=== PATIENT | male | born 1935 | race Caucasian/White ===

== ENCOUNTER 2019-05-13 20:39 | Emergency (ER) | payer OTHER ==
--- NOTE | 2019-05-13 20:50 | PDOC ---
Attending Attestation - Resident Resident Name: Chris Argueta - ED Attending Attestation I have performed the following: I have examined & evaluated the patient, The case was reviewed & discussed with the resident, I agree w/resident's findings & plan - HPI HPI: 05/13/19 22:32 see resident hpi - Physicial Exam PE: 05/13/19 22:32 agree with resident exam - Critical Care Time Total Critical Care Time: 60 Critical Care Statement: The care of this patient involved high complexity decision making to prevent further life threatening deterioration of the patient 's condition and/or to evaluate & treat vital organ system(s) failure or risk of failure. - Medical Decision Making 05/13/19 22:32 84-year-old male with shortness of breath and history of COPD Patient had an episode of chest pain followed by back pain in the emergency department Initial EKG showed borderline hyperacute T waves with no ST segment elevations No old EKG available for comparison Initial troponin elevated as is patient's BUN and creatinine Blood gas suggests partially compensated metabolic acidosis According to the family and the patient there is no known history of kidney disease Patient will be admitted to medical service, Solu-Medrol 125 mg, nebulizer treatments, aspirin given in the emergency department On reevaluation patient is clinically improved and prefers to be discharged home but at this time is agreeing to stay for admission
[2019-05-13] MEDS ORDERED: ASPIRIN 81 MG CHEWABLE TABLETS PO ONE (20:56)
--- NOTE | 2019-05-13 20:58 | PDOC ---
History of Present Illness - General Chief Complaint: Shortness of Breath Stated Complaint: DIFFICULTY OF BREATHING Time Seen by Provider: 05/13/19 20:49 History Source: Patient, Family (Daughter present at bedside.) Exam Limitations: Clinical Condition - History of Present Illness Initial Comments: HPI: 84 y/o male presenting to [facility] ER complaining of shortness of breath and substernal chest pain. SOB started suddenly around 4pm. Used home albuterol and tiotropium around 7pm with minimal improvement in symptoms. [facility] EMS crew arrived on scene and found the pt in acute respiratory distress. Placed the pt on NRB and administered Albuterol without improvement. Pt unable to speak secondary to acute condition. Able to nod yes and no. History primarily obtained from pt's daughter, who was present at bedside. Social Hx: - Current smoker Medical Hx: - COPD Review of Systems: Unable to obtain secondary to pts clinical condition Physical Examination: Constitutional- Thin elderly adult male in no acute respiratory distress. Pt unable to speak secondary to SOB. Head- Normocephalic. No obvious external signs of trauma. Cardiovascular / Chest- Tachycardic rate with regular rhythm. No murmur, rubs, clicks, or gallops. Peripheral pulses- radial pulses full. No JVD. No pretibial edema. Respiratory- Breathing shallow and rapid. Diffuse rhonchi with trace wheeze in all lung agustin. Subcostal retractions. Gastrointestinal- abdomen is soft, non-tender, non-distended. Neuro- Alert. Unable to assess orientation. Moving all four extremities spontaneously. Skin- Warm, dry, and intact. MDM: *Reviewed vital signs, nursing notes, and prior visit documentation (if available). 84 y/o male presenting with acute respiratory distress. Afebrile. Vitals remarkable for tachycardia without hypotension. Normoxic on 15 LPM on NRB. Physical exam as described above. CXR revealed hyperinflation without consolidation or effusion. Initial EKG revealed sinus tachycardia with peaked T waves and <1mm ST segment elevation in V1 and V2 with <1mm depression in V5 and V6. Labs revealed partially compensated metabolic acidosis, as well as possible acute renal failure. Troponin and BNP elevated. Possibly secondary to renal failure. Ordered repeat Troponin at 1.5 hours to trend. Given ASA, Solu-medrol, and Abuterol. Placed on BiPAP with rapid improvement of respiratory symptoms. On repeat interview with daughter, she informed that the pt injects himself with testosterone (unknown frequency). Uses multiple narcotic medications - unsure if Percocet is one of them. Frequently uses Ibuprofen and Acetaminophen for chronic back pain. Possibly taking other medications because he knows how to prescribe and gets a lot of things from [facility]. Started vomiting earlier today after endorsing heartburn symptoms. Took Pepto Bismol. 13 May 2019 22:33 PM Telephone discussion with resident Dr. Daniels. Verbally appraised of the pts HPI, ED course, and current plan of management. Will admit pt to med/surg for attending Dr. Torrez. Will f/u on pending acetaminophen , salicylate, lactic acid, and repeat troponin. Repeat EKG revealed sinus tachycardia with resolution of ST elevation in V1 and V2. ST elevation in V3 with <1mm depression in V4. Infrequent PVCs noted. Chris Argueta M.D., PGY2 Emergency Medicine Resident 05/13/19 22:42 Past History - Past Medical History Allergies/Adverse Reactions: Allergies Allergy/AdvReac Type Severity Reaction Status Date / Time No Known Allergies Allergy Verified 05/13/19 20:54 - Psycho Social/Smoking Cessation Hx Smoking History: Current some day smoker Number of Cigarettes Smoked Daily: 10 Information on smoking cessation initiated: No Hx Alcohol Use: Yes Drug/Substance Use Hx: No *Physical Exam - Vital Signs Last Vital Signs Temp Pulse Resp BP Pulse Ox 98.9 F 136 H 28 H 118/72 100 05/13/19 20:39 05/13/19 20:39 05/13/19 20:39 05/13/19 20:39 05/13/19 20:49 ED Treatment Course - LABORATORY CBC & Chemistry Diagram: 05/13/19 20:53 05/13/19 20:53 - RADIOLOGY Radiology Studies Ordered: Category Date Time Status CHEST X-RAY PORTABLE* [RAD] Stat Radiology 05/13/19 20:54 Ordered Discharge - Discharge Information Problems reviewed: Yes Clinical Impression/Diagnosis: Respiratory distress, Elevated troponin, Metabolic acidosis Renal failure Qualifiers: Renal failure chronicity: acute Acute renal failure type: unspecified Qualified Code(s): N17.9 - Acute kidney failure, unspecified Condition: Fair - Admission Yes - Follow up/Referral Referrals: Chin Lacey MD [Primary Care Provider] - - Patient Discharge Instructions - Post Discharge Activity
[2019-05-13 21:05] VITALS: BP 118/72; PULSE 136; TEMP 98.9; BMI 21.6
[2019-05-13] MEDS ORDERED: methylPREDNISolone NA SUCC 125 MG/2 ML VIAL IVPUSH ONE (21:11)
[2019-05-13] MEDS ORDERED: ALBUTEROL SO4 0.042% IH SOL 1.25 MG/3 ML VIAL.NEB NEB ONE (21:11)
[2019-05-13 21:21] LABS: BASO % 0.2 % (0-2.0); EOS % 0.1 % (0-4.5); MCH 29.2 pg (25.7-33.7)
[2019-05-13 21:33] LABS: ARTERIAL BLD GAS O2 SATURATION 98.6 % (95-98); ARTERIAL BLOOD GAS BASE EXCESS -8.3 meq/l (-2-2); ARTERIAL BLOOD GAS PCO2 32.4 mmHg (35-45); ARTERIAL BLOOD GAS PO2 167 mmHg (80-100); ARTERIAL BLOOD GAS pH 7.32 (7.35-7.45); CARBOXYHEMOGLOBIN 0.8 % (0-2)
[2019-05-13 21:36] LABS: VENOUS PC02 51.6 mmHg (38-52); VENOUS PH 7.21 (7.31-7.41)
[2019-05-13] MEDS ORDERED: LIDOCAINE 5% TOPICAL PATCH TP ONE (21:36)
[2019-05-13] MEDS ORDERED: ACETAMINOPHEN 1000 MG/100 ML VIAL (NON FORMULARY) IVPB ONE (21:36)
[2019-05-13] MEDS ORDERED: methylPREDNISolone NA SUCC 125 MG/2 ML VIAL ONE (21:37)
[2019-05-13] MEDS ORDERED: ASPIRIN 81 MG CHEWABLE TABLETS ONE (21:37)
[2019-05-13] MEDS ORDERED: ACETAMINOPHEN INJECTION 100 ML IVPB ONE (21:41)
[2019-05-13] MEDS ORDERED: LIDOCAINE 5% TOPICAL PATCH ONE (21:42)
[2019-05-13 21:45] LABS: VENOUS PO2 < 49 mmHg (28-48)
[2019-05-13] MEDS ORDERED: ALBUTEROL SO4 0.083% IH SOL 2.5 MG/3 ML VIAL.NEB. NEB ONE (21:47)
[2019-05-13 21:48] LABS: HEMATOCRIT 49.8 % (35.4-49); HEMOGLOBIN 15.6 GM/dL (11.7-16.9); LYMPH % 4.6 % (8-40); MCHC 31.4 g/dl (32.0-35.9); MEAN CELL VOLUME 93.1 fl (80-96); MEAN PLT VOLUME 8.6 fl (7.5-11.1); MONO % 5.6 % (3.8-10.2); NEUT % 89.5 % (42.8-82.8); PLATELET COUNT 301 K/MM3 (134-434); RBC 5.34 M/mm3 (4.00-5.60); RDW 15.1 % (11.9-15.9); WHITE BLOOD COUNT 19.2 K/mm3 (4.0-10.0)
[2019-05-13 21:51] LABS: BILIRUBIN,TOTAL 0.7 mg/dL (0.2-1); BLOOD UREA NITROGEN 46.4 mg/dL (7-18); CALCIUM 8.7 mg/dL (8.5-10.1); CREATININE 2.8 mg/dL (0.55-1.3); N-TERMINAL BNP 1094.6 pg/ml (5-450); POTASSIUM 4.5 mmol/L (3.5-5.1); TOT PROT 7.7 g/dl (6.4-8.2)
[2019-05-13] MEDS ORDERED: LIDOCAINE PATCH REMOVAL MC SCH (22:00)
[2019-05-13 22:03] LABS: INR 1.02 (0.83-1.09)
--- NOTE | 2019-05-13 22:35 | PN ---
Teaching Attending Note Name of Resident: Chrissy Ojeda ATTENDING PHYSICIAN STATEMENT I saw and evaluated the patient. I reviewed the resident's note and discussed the case with the resident. I agree with the resident's findings and plan as documented. SUBJECTIVE: Patient is 84 year old man with PMH of COPD, Tobacco use, Testicular cancer, CHF , Afib (on flecanide but no AC), and Chronic back pain presenting to ER complaining of shortness of breath and substernal chest pain. SOB started suddenly around 4pm. Used home albuterol and tiotropium around 7pm with minimal improvement in symptoms. EMS crew arrived on scene and found the patient in acute respiratory distress. Placed the patient on NRB and administered Albuterol without improvement. On arrival in the ER patient was unable to speak secondary to the acute condition. Able to nod yes and no. History primarily obtained from pt's daughter , who was present at bedside. Initial EKG showed borderline hyperacute T waves with no ST segment elevations - no old EKG available for comparison. Initial troponin elevated as is patient's BUN and creatinine. As per family patient there is no known history of kidney disease. Patient got Solu-Medrol 125 mg, nebulizer treatments and aspirin in the ER. Placed on BiPAP with rapid improvement of respiratory symptoms. Daughter says that the patient injects himself with testosterone (unknown frequency). Uses multiple narcotics, Ibuprofen and Acetaminophen for chronic back pain. Started vomiting earlier today after endorsing heartburn symptoms. Took Pepto Bismol. Repeat EKG in the ER revealed sinus tachycardia with resolution of ST elevation in V1 and V2. ST elevation in V3 with <1mm depression in V4. Infrequent PVCs noted. OBJECTIVE: Alert on BiPAP Vital Signs Period Temp Pulse Resp BP Sys/Bishop Pulse Ox Last 24 Hr 98.9 F 136 28 118/72 100-100 HEENT: No Jaundice, eye redness or discharge, PERRLA, EOMI. Normocephalic, atraumatic. External ears are normal and hearing is grossly intact. No nasal discharge. Neck: Supple, nontender. No palpable adenopathy or thyromegaly. No JVD Chest: Good effort. Diffuse expiratory wheezing. Clear to percussion. Heart: Regular. No S3, rub or murmur Abdomen: Not distended, soft, nontender and no HSM. No rebound or guarding. Normal bowel sounds. Ext: Peripheral pulses intact. No leg edema. Skin: Warm and dry. No petechiae, rash or ecchymosis. Neuro: Alert. Oriented x3. CN 2-12 grossly intact. Sensation grossly intact in all four extremities and DTR are symmetric. Psych: Appropriate mood and affect. Good insight. Current Medications Generic Name Dose Route Start Last Admin Trade Name Freq PRN Reason Stop Dose Admin Miscellaneous 1 each 05/13/19 22:00 Lidoderm Patch Removal MC [id number] SHEMAR Abnormal Lab Results 05/13/19 05/13/19 05/13/19 20:53 20:53 20:53 WBC 19.2 H Hct 49.8 H MCHC 31.4 L Absolute Neuts (auto) 17.1 H Neutrophils % 89.5 H Lymphocytes % 4.6 L ABG pH 7.32 L ABG pCO2 at Pt Temp 32.4 L ABG pO2 at Pt Temp 167 H ABG HCO3 16.3 L ABG O2 Sat (Measured) 98.6 H ABG Base Excess -8.3 L VBG pH POC VBG pO2 VBG HCO3 VBG Base Excess Carbon Dioxide Anion Gap BUN Creatinine Random Glucose Troponin I 0.14 H B-Natriuretic Peptide 05/13/19 05/13/19 20:53 20:53 WBC Hct MCHC Absolute Neuts (auto) Neutrophils % Lymphocytes % ABG pH ABG pCO2 at Pt Temp ABG pO2 at Pt Temp ABG HCO3 ABG O2 Sat (Measured) ABG Base Excess VBG pH 7.21 L POC VBG pO2 < 49 H VBG HCO3 19.9 L VBG Base Excess -8.2 L Carbon Dioxide 20 L Anion Gap 17 H BUN 46.4 H Creatinine 2.8 H Random Glucose 238 H Troponin I B-Natriuretic Peptide 1094.6 H ASSESSMENT AND PLAN: 1. COPD exacerbation - Continued smoking is likely partly a precipitating factor. Has leuocytosis and lactic acidosis, but afebrile and no obvious source of infection. CXR shows hyperinflation with no infiltrates, pneumothorax or effusion. Pending UA and Chest CT (pneumonia?) will treat with solumedrol, xopenex, azihromycin and rocephin, and symbicort. Hydrate with IV NS, get urine toxicology and trend lactic acid. Patient has Afib and is not on anticoagulant. EKG shows sinus tachycardia, DARWIN and nonspecific ST-T wave changes. Elevated troponin may signal demand ischemia - will treadn trponin and repeat EKG to rule out ACS. Get ECHO and consult cardiology. Can't get a chest CTA to rule out PE because of azotemia. Will get d -dimer, leg doppler, V/Q scan and consult Pulmonary. Will decide on anticoagulation after d-dimer and leg doppler. Will continue comprehensive care for all of patients comorbid conditions. 2. VIKI - Likely partly due to NSAIDS. Will get stat UA, kidney sonogram, hydrate and monitor urine output. consult nephrology and avoid nephrotoxic agents such as NSAIDS, aminoglycosides, contrast dyes and certain Alternative medicine products. 3. DM? Patient denies having DM. Hyperglycemia may be contributing to metabolic acidosis. Will treat SQ insulin if repeat glucose do sliding scale insulin regimen. Provide comprehensive diabetes care with patient teaching and counseling about the importance of adherence to prescribed diabetes regimen, euglycemia, eye care and foot care. 4. Tobacco Use Counseled on risks associated with tobacco use. We will provide patient all the necessary assistance to facilitate smoking cessation and prescribe Nicotine patch. 5. DVT prophylaxis - Heparin 5000u sq tid. 6. Advance directives - Full code
[2019-05-13] MEDS ORDERED: LACTATED RINGERS SOLUTION 1000 ML INFUS.BAG IV ONE (23:02)
[2019-05-13] MEDS ORDERED: ALBUTEROL SO4 2.5/IPRATROPIUM 0.5 INH SOL 3 ML VIAL.NEB. NEB ONE (23:49)
[2019-05-13] MEDS ORDERED: NITROGLYCERIN 2% OINTMENT - 1GM PACKET TD ONE (23:59)
[2019-05-14] MEDS ORDERED: NITROGLYCERIN 2% OINTMENT - 1GM PACKET TD ONE (00:03)
[2019-05-14] MEDS ORDERED: KETAMINE HCL 200 MG/20 ML VIAL IVPUSH ONE (00:06)
[2019-05-14] MEDS ORDERED: ROCURONIUM BROMIDE 50 MG/5 ML VIAL IVPUSH ONE (00:06)
[2019-05-14] MEDS ORDERED: RAPID SEQUENCE INTUBATION KIT NR ONE ×2 (00:10→00:17)
[2019-05-14] MEDS ORDERED: KETAMINE HCL 200 MG/20 ML VIAL ONE (00:13)
[2019-05-14] MEDS ORDERED: SODIUM CHLORIDE 1,000 ML IV SCH (00:15)
[2019-05-14] MEDS ORDERED: AZITHROMYCIN IVPB 500 MG in DEXTROSE 5%-WATER - 250 ML IVPB ONE (00:23)
[2019-05-14] MEDS ORDERED: LEVALBUTEROL HCL 0.63 MG/3 ML VIAL.NEB. IH PRN (00:30)
[2019-05-14] MEDS ORDERED: EPINEPHrine 1:10,000 (P-F SYR) 1 MG/10 ML DISP.SYRIN ONE (01:18)
--- NOTE | 2019-05-14 01:29 | HP ---
CHIEF COMPLAINT: Shortness of breath PCP: Dr. Lacey Baker Apprentice: Dr. Mateo Alicea, last seen in 2017 HISTORY OF PRESENT ILLNESS: Patient is 84 year old man with PMH of COPD, Tobacco use, testicular cancer, afib (on flecainide but no AC), chronic back pain, and questionable history of CHF presenting to ED complaining of shortness of breath. Per the patient's daughter, the patient appeared to be in his usual state of health until around 4pm. She was making tea and her dad was in the other room and when she came back to check on him she noted he was making "noises" and appeared to be struggling to breath. He tried to use his home albuterol and tiotropium around 7pm with minimal improvement in symptoms. S EMS crew arrived on scene and found the pt in acute respiratory distress. Placed the pt on NRB and administered Albuterol without improvement. Additionally patient reports 6 episodes of vomiting earlier today after endorsing heartburn symptoms. Took Pepto Bismol without improvement in symptoms. Initial EKG showed borderline hyperacute T waves with no ST segment elevations - no old EKG available for comparison. Initial troponin elevated (0.14) as is patient's BUN and creatinine (46.4/ 2.8). As per family patient there is no known history of kidney disease. Patient got Solu-Medrol 125 mg, nebulizer treatments and aspirin in the ER. Placed on BiPAP. Per the ED note the patient was unable to give much history due to respiratory distress. On my arrival the patient appeared somewhat improved in that now he was speaking in sentences and answering some questions however he was writhing around in the bed, appearing uncomfortable and complaining of pain. My history was obtained from both the patient and his daughter who was present at the bedside. Daughter says that the patient injects himself with testosterone (unknown frequency) and the patient confirms this, stating he uses it to "build up muscle mass". Per the daughter uses multiple narcotics (patient denies) in addition to Ibuprofen and Acetaminophen for chronic back pain (endorses use of these OTC meds). 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 For example, he only uses his lasix when his feet swell. Repeat EKG in the ER revealed sinus tachycardia with resolution of ST elevation in V1 and V2. ST elevation in V3 with <1mm depression in V4. Infrequent PVCs noted. ER course was notable for: (1) Initial EKG showed borderline hyperacute T waves with no ST segment elevations - no old EKG available for comparison. Repeat EKG in the ER revealed sinus tachycardia with resolution of ST elevation in V1 and V2. ST elevation in V3 with <1mm depression in V4. Infrequent PVCs noted. (2) Tachycardic to 130, tachypneic to 28, televated trop (0.14) as is patient's BUN and creatinine (46.4/ 2.8). (3) Solu-Medrol 125 mg, nebulizer treatments and aspirin given, placed on BiPAP Recent Travel: denies PAST MEDICAL HISTORY: COPD, Tobacco use, testicular cancer, afib (on flecainide but no AC), chronic back pain, and questionable history of CHF PAST SURGICAL HISTORY: testicle removed Social History: Smoking: former 1ppd smoker for > 40 years, currently smokes 3-4 cigarettes per day Alcohol: rarely for social occasions Drugs: denies Allergies No Known Allergies Allergy (Verified 05/13/19 20:54) HOME MEDICATIONS: REVIEW OF SYSTEMS CONSTITUTIONAL: Absent: fever, chills, diaphoresis, generalized weakness, malaise, loss of appetite, weight change HEENT: Absent: rhinorrhea, nasal congestion, throat pain, throat swelling, difficulty swallowing, mouth swelling, ear pain, eye pain, visual changes CARDIOVASCULAR: Absent: chest pain, syncope, palpitations, irregular heart rate, lightheadedness , peripheral edema RESPIRATORY: cough, shortness of breath Absent: dyspnea with exertion, orthopnea, wheezing, stridor, hemoptysis GASTROINTESTINAL: heart burn, vomiting Absent: abdominal pain, abdominal distension, nausea, diarrhea, constipation, melena, hematochezia GENITOURINARY: Absent: dysuria, frequency, urgency, hesitancy, hematuria, flank pain, genital pain MUSCULOSKELETAL: Absent: myalgia, arthralgia, joint swelling, back pain, neck pain SKIN: Absent: rash, itching, pallor HEMATOLOGIC/IMMUNOLOGIC: Absent: easy bleeding, easy bruising, lymphadenopathy, frequent infections ENDOCRINE: Absent: unexplained weight gain, unexplained weight loss, heat intolerance, cold intolerance NEUROLOGIC: Absent: headache, focal weakness or paresthesias, dizziness, unsteady gait, seizure, mental status changes, bladder or bowel incontinence PSYCHIATRIC: Absent: anxiety, depression, suicidal or homicidal ideation, hallucinations. PHYSICAL EXAMINATION Vital Signs - 24 hr 05/13/19 05/13/19 20:39 20:49 Temperature 98.9 F Pulse Rate 136 H Respiratory 28 H Rate Blood Pressure 118/72 O2 Sat by Pulse 100 100 Oximetry (%) GENERAL: Awake, alert, and fully oriented, in mild discomfort, breathing well on BiPAP but complaining of pain. Cachectic HEAD: Normal with no signs of trauma. EYES: Pupils equal, round and reactive to light, extraocular movements intact, sclera anicteric, conjunctiva clear. No lid lag. EARS, NOSE, THROAT: Ears normal, nares patent, oropharynx clear without exudates. Moist mucous membranes. NECK: Normal range of motion, supple without lymphadenopathy, JVD, or masses. LUNGS: Breath sounds equal, expiratory wheezes throughout anterior and posterior lung agustin. No accessory muscle use. HEART: Distant heart sounds, tachycardic, regular rhythm, normal S1 and S2. ABDOMEN: Soft, nontender, not distended, normoactive bowel sounds, no guarding, MUSCULOSKELETAL: Normal range of motion at all joints. No bony deformities or tenderness. No CVA tenderness. UPPER EXTREMITIES: 2+ pulses, warm, well-perfused. No cyanosis. No clubbing. No peripheral edema. Sensation intact bilaterally 1+ symmetric reflexes bilaterally at biceps and brachioradialis, 5/5 strength. LOWER EXTREMITIES: 2+ pulses, warm, well-perfused. No calf tenderness. No peripheral edema. Sensation intact bilaterally, 1+ patellar and Achilles tendon reflexes bilaterally, 5/5 strength bilaterally NEUROLOGICAL: Cranial nerves II-XII grossly intact. Normal speech. PSYCHIATRIC: Cooperative. Good eye contact. SKIN: Warm, dry, normal turgor, no rashes or lesions noted, normal capillary refill. Lidocaine patch on back, no ulcers noted. Laboratory Results - last 24 hr 05/13/19 05/13/19 05/13/19 20:53 20:53 20:53 WBC 19.2 H RBC 5.34 Hgb 15.6 Hct 49.8 H MCV 93.1 MCH 29.2 MCHC 31.4 L RDW 15.1 Plt Count 301 MPV 8.6 Absolute Neuts (auto) 17.1 H Neutrophils % 89.5 H Lymphocytes % 4.6 L Monocytes % 5.6 Eosinophils % 0.1 Basophils % 0.2 Nucleated RBC % 0 PT with INR INR PTT (Actin FS) Anticoagulation Therapy No Result Required. Puncture Site No Result Required. ABG pH 7.32 L ABG pCO2 at Pt Temp 32.4 L ABG pO2 at Pt Temp 167 H ABG HCO3 16.3 L ABG O2 Sat (Measured) 98.6 H ABG O2 Content 21.3 ABG Base Excess -8.3 L Salvatore Test No Result Required. VBG pH POC VBG pCO2 POC VBG pO2 VBG HCO3 VBG O2 Sat (Marv) VBG Base Excess Carboxyhemoglobin 0.8 Methemoglobin < 1.0 O2 Delivery Device No Result Required. Oxygen Flow Rate No Result Required. Vent Mode No Result Required. Vent Rate No Result Required. Mechanical Rate No Result Required. Pressure Support Vent No Result Required. Sodium Potassium Chloride Carbon Dioxide Anion Gap BUN Creatinine Est GFR (CKD-EPI)AfAm Est GFR (CKD-EPI)NonAf Random Glucose Hemoglobin A1c % Lactic Acid Calcium Total Bilirubin AST ALT Alkaline Phosphatase Creatine Kinase 146 Troponin I 0.14 H B-Natriuretic Peptide Total Protein Albumin Salicylates Acetaminophen Alcohol, Quantitative 05/13/19 05/13/19 05/13/19 20:53 20:53 20:53 WBC RBC Hgb Hct MCV MCH MCHC RDW Plt Count MPV Absolute Neuts (auto) Neutrophils % Lymphocytes % Monocytes % Eosinophils % Basophils % Nucleated RBC % PT with INR 12.00 INR 1.02 PTT (Actin FS) Anticoagulation Therapy Puncture Site ABG pH ABG pCO2 at Pt Temp ABG pO2 at Pt Temp ABG HCO3 ABG O2 Sat (Measured) ABG O2 Content ABG Base Excess Salvatore Test VBG pH 7.21 L POC VBG pCO2 51.6 POC VBG pO2 < 49 H VBG HCO3 19.9 L VBG O2 Sat (Marv) 71.6 VBG Base Excess -8.2 L Carboxyhemoglobin Methemoglobin O2 Delivery Device Oxygen Flow Rate Vent Mode Vent Rate Mechanical Rate Pressure Support Vent Sodium 144 Potassium 4.5 Chloride 106 Carbon Dioxide 20 L Anion Gap 17 H BUN 46.4 H Creatinine 2.8 H Est GFR (CKD-EPI)AfAm 22.97 Est GFR (CKD-EPI)NonAf 19.82 Random Glucose 238 H Hemoglobin A1c % Lactic Acid Calcium 8.7 Total Bilirubin 0.7 AST 25 ALT 19 Alkaline Phosphatase 89 Creatine Kinase Troponin I B-Natriuretic Peptide 1094.6 H Total Protein 7.7 Albumin 4.0 Salicylates Acetaminophen Alcohol, Quantitative 05/13/19 05/13/19 05/13/19 21:57 22:15 22:20 WBC RBC Hgb Hct MCV MCH MCHC RDW Plt Count MPV Absolute Neuts (auto) Neutrophils % Lymphocytes % Monocytes % Eosinophils % Basophils % Nucleated RBC % PT with INR INR PTT (Actin FS) 35.9 Anticoagulation Therapy Puncture Site ABG pH ABG pCO2 at Pt Temp ABG pO2 at Pt Temp ABG HCO3 ABG O2 Sat (Measured) ABG O2 Content ABG Base Excess Salvatore Test VBG pH POC VBG pCO2 POC VBG pO2 VBG HCO3 VBG O2 Sat (Marv) VBG Base Excess Carboxyhemoglobin Methemoglobin O2 Delivery Device Oxygen Flow Rate Vent Mode Vent Rate Mechanical Rate Pressure Support Vent Sodium Potassium Chloride Carbon Dioxide Anion Gap BUN Creatinine Est GFR (CKD-EPI)AfAm Est GFR (CKD-EPI)NonAf Random Glucose Hemoglobin A1c % Lactic Acid 5.9 H* Calcium Total Bilirubin AST ALT Alkaline Phosphatase Creatine Kinase Troponin I 0.19 H B-Natriuretic Peptide Total Protein Albumin Salicylates Acetaminophen Alcohol, Quantitative 05/13/19 05/13/19 05/14/19 22:23 23:10 00:08 WBC RBC Hgb Hct MCV MCH MCHC RDW Plt Count MPV Absolute Neuts (auto) Neutrophils % Lymphocytes % Monocytes % Eosinophils % Basophils % Nucleated RBC % PT with INR INR PTT (Actin FS) Anticoagulation Therapy Puncture Site ABG pH ABG pCO2 at Pt Temp ABG pO2 at Pt Temp ABG HCO3 ABG O2 Sat (Measured) ABG O2 Content ABG Base Excess Salvatore Test VBG pH POC VBG pCO2 POC VBG pO2 VBG HCO3 VBG O2 Sat (Marv) VBG Base Excess Carboxyhemoglobin Methemoglobin O2 Delivery Device Oxygen Flow Rate Vent Mode Vent Rate Mechanical Rate Pressure Support Vent Sodium Potassium Chloride Carbon Dioxide Anion Gap BUN Creatinine Est GFR (CKD-EPI)AfAm Est GFR (CKD-EPI)NonAf Random Glucose Hemoglobin A1c % 5.3 Lactic Acid Calcium Total Bilirubin AST ALT Alkaline Phosphatase Creatine Kinase Troponin I B-Natriuretic Peptide Total Protein Albumin Salicylates 4.4 Acetaminophen 17.7 Alcohol, Quantitative < 3.0 ASSESSMENT/PLAN: Patient is 84 year old man with PMH of COPD, Tobacco use, testicular cancer, afib (on flecainide but no AC), chronic back pain, and questionable history of CHF presenting to ED complaining of shortness of breath in acute respiratory distress. # Acute respiratory distress- COPD exacerbation vs. PE. The patient continues smoking which may have precipitated a COPD exacerbation, on physical exam he had expiratory wheezing throughout and symptoms somewhat improved with dunebs and solumedrol in the ED. Has leuocytosis and lactic acidosis, but afebrile and no obvious source of infection. CXR shows hyperinflation with no infiltrates, pneumothorax or effusion. Patient also reports having Afib and denies taking any a/c, also uses testosterone which may contribute to hypercoaguability. Must r/o PE. - obtain chest CT (atypical PNA?) - solumedrol 60q8 - symbicort - azithromycin 500 once then 250 daily will also add rocephin - xopenex as patient is tachycardic - gentle hydration with IVNS - trend LA - utox - doppler LE state to r/o DVT - d-dimer stat - consult pulm, appreciate recommendations> V/Q scan? Patient cannot have CTA to r/o PE due to azotemia #Afib- patient not on any anticoagulant. EKG shows sinus tachycardia, right atrial enlargement and nonspecific ST-T wave changes. Elevated troponin may signal demand ischemia - trend trponin and repeat EKG to rule out ACS - Consult cardiology, appreciate recommendations> Echo? - decide on anticoagulation after d-dimer and leg doppler results are obtained # VIKI- Likely partly due to NSAIDS (patient reports taking 600mg TID for 5 months) - stat UA - kidney sonogram - hydrate and monitor urine output - consult nephrology and avoid nephrotoxic agents such as NSAIDS, aminoglycosides, contrast dyes and certain Alternative medicine products #DM - Patient denies having DM. Hyperglycemia may be contributing to metabolic acidosis. - obtain A1C - repeat BMP stat - Will treat with SQ insulin if repeat glucose remains elevated> sliding scale insulin regimen # Tobacco use - Counseled on risks associated with tobacco use. - Nicotine patch #FEN - Gentle hydration with IVNS - replete PRN - NPO for now given tenuous respiratory status #PPx DVT prophylaxis - Heparin 5000u sq tid. #Dispo Admit to telemetry for close monitoring due to tenuous respiratory status. Patient may require intubation and transfer to ICU if symptoms worsen or do not improve. Visit type - Emergency Visit Emergency Visit: Yes Care time: The patient presented to the Emergency Department on the above date and was hospitalized for further evaluation of their emergent condition. - New Patient This patient is new to me today: Yes Date on this admission: 05/14/19 - Critical Care Critical Care patient: No ATTENDING PHYSICIAN STATEMENT I saw and evaluated the patient. I reviewed the resident's note and discussed the case with the resident. I agree with the resident's findings and plan as documented. SUBJECTIVE: OBJECTIVE: ASSESSMENT AND PLAN:
[2019-05-14] MEDS ORDERED: methylPREDNISolone NA SUCC 40 MG/1 ML VIAL IVPUSH SCH (02:00)
[2019-05-14] MEDS ORDERED: HEPARIN NA (PORCINE) 5,000 UNITS/ML 1ML VIAL SQ SCH (06:00)
[2019-05-14] MEDS ORDERED: CEFTRIAXONE 1 GM in DEXTROSE 5%-WATER - 50 ML IVPB SCH (10:00)
[2019-05-14] MEDS ORDERED: AZITHROMYCIN IVPB 250 MG in DEXTROSE 5%-WATER - 250 ML IVPB SCH (10:00)
--- NOTE | 2019-05-14 11:05 | EKG ---
Test Reason : Blood Pressure : / mmHG Vent. Rate : 024 BPM Atrial Rate : 024 BPM P-R Int : 000 ms QRS Dur : 206 ms QT Int : 804 ms P-R-T Axes : 000 -87 -40 degrees QTc Int : 507 ms LESS THAN 4 QRS COMPLEXES DETECTED, NO INTERPRETATION POSSIBLE NO PREVIOUS ECGS AVAILABLE Confirmed by Jorge Hanley MD ([id number]) on 05/14/2019 11:04:28 AM Referred By: Confirmed By:Jorge Hanley MD
--- NOTE | 2019-05-14 11:05 | EKG ---
Test Reason : Blood Pressure : / mmHG Vent. Rate : 130 BPM Atrial Rate : 130 BPM P-R Int : 138 ms QRS Dur : 084 ms QT Int : 302 ms P-R-T Axes : 086 090 076 degrees QTc Int : 444 ms POOR DATA QUALITY, INTERPRETATION MAY BE ADVERSELY AFFECTED SINUS TACHYCARDIA WITH FUSION COMPLEXES RIGHT ATRIAL ENLARGEMENT RIGHTWARD AXIS PULMONARY DISEASE PATTERN NONSPECIFIC ST ABNORMALITY ABNORMAL ECG NO PREVIOUS ECGS AVAILABLE Confirmed by Jorge Hanley MD ([id number]) on 05/14/2019 11:04:49 AM Referred By: Confirmed By:Jorge Hanley MD
== END 2019-05-14 04:18 | disposition expired ==
LOC: JER 20:39
PROC: 5A02216 Assistance with Cardiac Output using Other Pump, Continuous (ICD-10-PCS; principal; 2019-05-13)
PROC: 0BH17EZ Insertion of Endotracheal Airway into Trachea, Via Natural or Artificial Opening (ICD-10-PCS; 2019-05-13)
PROC: 5A1935Z Respiratory Ventilation, Less than 24 Consecutive Hours (ICD-10-PCS; 2019-05-13)
PROC: 3E0F7GC Introduction of Other Therapeutic Substance into Respiratory Tract, Via Natural or Artificial Opening (ICD-10-PCS; 2019-05-13)
PROC: 06HY33Z Insertion of Infusion Device into Lower Vein, Percutaneous Approach (ICD-10-PCS; 2019-05-13)
PROC: 4A1 Measurement and Monitoring, Physiological Systems, Monitoring (ICD-10-PCS; 2019-05-13)
PROC: 3E0F7GC Introduction of Other Therapeutic Substance into Respiratory Tract, Via Natural or Artificial Opening (ICD-10-PCS; 2019-05-13)
PROC: 3E033NZ Introduction of Analgesics, Hypnotics, Sedatives into Peripheral Vein, Percutaneous Approach (ICD-10-PCS; 2019-05-13)
PROC: 3E0333Z Introduction of Anti-inflammatory into Peripheral Vein, Percutaneous Approach (ICD-10-PCS; 2019-05-13)
PROC: 3E033FZ Introduction of Intracirculatory Anesthetic into Peripheral Vein, Percutaneous Approach (ICD-10-PCS; 2019-05-13)
PROC: 3E033GC Introduction of Other Therapeutic Substance into Peripheral Vein, Percutaneous Approach (ICD-10-PCS; 2019-05-13)
DX: I46.8 Cardiac arrest due to other underlying condition (principal); R06.03 Acute respiratory distress; J44.1 Chronic obstructive pulmonary disease with (acute) exacerbation; R74.8 Abnormal levels of other serum enzymes; R79.89 Other specified abnormal findings of blood chemistry; E87.2 Acidosis; N17.9 Acute kidney failure, unspecified; I48.91 Unspecified atrial fibrillation; G89.29 Other chronic pain; M54.5 Low back pain; Z85.47 Personal history of malignant neoplasm of testis; Z79.890 Hormone replacement therapy; F17.210 Nicotine dependence, cigarettes, uncomplicated
CPT/HCPCS: 31500; 36415; 36600; 71045-TC-FY; 80053; 80307; 82375; 82550; 82803; 83036; 83050; 83605; 83880; 84484; 85025; 85610; 85730; 92950; 93005; 93010; 94002; 94640; 96374; 96375; 99285-25; J0131